=== PATIENT | female | born 1985 | race African-American/Black ===

== ENCOUNTER 2017-07-10 06:47 | Emergency (ER) | payer MEDICAID ==
--- NOTE | 2017-07-10 08:27 | ED Physician Chart ---
ED Chief Complaint/HPI - Patient Information Date Seen:: 07/10/17 Time Seen:: 08:15 Chief Complaint:: right hand pain History of Present Illness:: location: right hand quality: sharp pain severity: mild, mod duration: one day context: pt says she punched a wall out of anger yesterday and reports pain to right hand. this morning was on her way from [employer] to work in this area and decided to stop at this hospital ER to be seen. reports no paralysis or paresthesia. is able to use the affected hand but reports sharp pain along inferior margin of hand. pain is non-radiating, took some over the counter medication for pain yesterday, reports some relief. mod factors: none assoc s/s:none hx from pt. Allergies:: Allergies Allergy/AdvReac Type Severity Reaction Status Date / Time No Known Allergies Allergy Verified 07/10/17 07:07 Vitals:: Vital Signs - 8 hr 07/10/17 06:50 Temp 99.3 F HR 80 RR 18 BP 119/84 O2 Sat % 100 Historian:: Patient Review:: Nurse's Note Reviewed ED Review of Systems - Review of Systems General/Constitutional: No fever, No chills, No weight loss, No weakness, No diaphoresis, No edema, No loss of appetite Skin: No skin lesions, No rash, No bruising Head: No headache, No light-headedness Eyes: No loss of vision, No pain, No diplopia ENT: No earache, No nasal drainage, No sore throat, No tinnitus Neck: No neck pain, No swelling, No thyromegaly, No stiffness, No mass noted Cardio Vascular: No chest pain, No palpitations, No PND, No orthopnea, No edema Pulmonary: No SOB, No cough, No sputum, No wheezing GI: No nausea, No vomiting, No diarrhea, No pain, No melena, No hematochezia, No constipation, No hematemesis G/U: No dysuria, No frequency, No hematuria Musculoskeletal: Bone or joint pain (right inferior hand pain- nonradiating), No back pain, No muscle pain Endocrine: No polyuria, No polydipsia Psychiatric: No prior psych history, No depression, No anxiety, No suicidal ideation Hematopoietic: No bruising, No lymphadenopathy Allergic/Immuno: No urticaria, No angioedema Neurological: No syncope, No focal symptoms, No weakness, No paresthesia, No headache, No seizure, No dizziness, No confusion, No vertigo ED Past Medical History - Past Medical History Past Medical History: No significant medical hx Family History: None Social History: Non Smoker, No Alcohol, No Drug Use, Surgical History: None Psychiatricy History: None Medication: None Family Medical History - Family Member Mother History Unknown: Yes ED Physical Exam - Physical Examination General/Constitutional: Awake, Well-developed, well-nourished, Alert, No distress, GCS 15, Non-toxic appearing, Ambulatory Head: Atraumatic Eyes: Lids, conjuctiva normal, PERRL, EOMI Skin: Nl inspection, No rash, No skin lesions, No ecchymosis, Well hydrated, No lymphadenopathy ENMT: External ears, nose nl Neck: Nontender, No nuchal rigidity Respiratory: Nl effort/Exclusion, Clear to Auscultation, No Wheeze/Rhonchi/Rales Cardio Vascular: RRR, No murmur, gallop, rubs, NL S1 S2 : No CVA tenderness (back exam: pt with 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 this is the location pt points to as source of pain. adds history that it has been present for about a year. and says this is also one of her complaints in ER today. no paralysis or paresthesia of lower limbs. ) Extremities: No tenderness or effusion, Full ROM, normal strength in all extremities, No edema, Normal digits & nails (right hand, no edema, soft tissue tenderness at inferior margin of hand. no obvious deformity) Neuro/Psych: Alert/oriented, Normal sensory exam, Normal motor strength, Judgement/insight normal, Mood normal, Normal gait, No focal deficits Misc: Normal back, No paraspinal tenderness ED Assessment - Assessment General Assessment: pt stable while in ER ulnar gutter short arm splint placed by RN normal cap refill and sensation post splint placement. ED Septic Shock - . Is Septic Shock (SBP<90, OR Lactate>4 mmol\L) present?: No - <6hrs of presentation: Vital Signs: Vital Signs - 8 hr 07/10/17 06:50 Temp 99.3 F HR 80 RR 18 BP 119/84 O2 Sat % 100 ED Reassessment (Disposition) - Reassessment Reassessment:: medical decision making pt with history of punching a wall. xray shows fifth metacarpal fracture oblique minimally displaced - RAD READ pt also with history of small mass at mid posterior back for at least one year. says it is causing her pain. on a daily basis. pt advised to FU with orthopedics for hand evaluation and treatment splint placed in ER. pt given script [place] 5/325 one po q6 prn pain, D20 NR. Reassessment Condition:: Improved - Diagnosis Diagnosis:: 5th metacarpal fracture right hand - Aftercare/Follow up Instructions Aftercare/Follow-Up Instructions:: Refer to Discharge Instructions Notes:: follow up with orthopedics within less than one week. Medication Prescribed:: norco 5/325 one po q6 prn pain, D20 NR - Patient Disposition Discharge/Transfer:: Home Condition at Disposition:: Stable, Improved
--- NOTE | 2017-07-10 08:58 | Diagnostic Imaging Report ---
Exam: Right hand HISTORY trauma Findings: Multiple views of right hand reviewed. The study demonstrates minimally displaced oblique fractures through the proximal and the right fifth metacarpal bone. The fracture does noted extending to the articulating surface. Mild soft tissue swelling is noted IMPRESSION: Minimally displaced oblique fracture report through the proximal end right fifth metacarpal bone.
== END 2017-07-10 09:55 | disposition home or self-care (01) ==
LOC: ER 06:47
DX: S62.306A Unspecified fracture of fifth metacarpal bone, right hand, initial encounter for closed fracture (principal); W22.01XA Walked into wall, initial encounter; Y93.89 Activity, other specified; Y92.89 Other specified places as the place of occurrence of the external cause; Y99.8 Other external cause status
CPT/HCPCS: 99284; 96372; 29125; 73130; J1885; Z7502